=== PATIENT | male | born 1955 | race Asian ===

== ENCOUNTER 2024-07-02 05:14 | Day surgery (SDC) | payer SELFPAY ==
[~2024-07-02] VITALS: Ht 152.4 cm; Wt 89.0 kg
[~2024-07-02 05:14] MED LIST: SODIUM CHLORIDE 0.9% 1,000 ML ONE
[2024-07-02 05:49] LABS: BASOPHILS % (AUTO) 0.5 % (0.0-2.0); EOSINOPHILS % (AUTO) 1.5 % (1.0-6.0); HEMATOCRIT 46.7 % (41-53); HEMOGLOBIN 15.7 g/dL (13.5-17.5); LYMPHOCYTES # (AUTO) 2.8 K/uL (1.0-4.8); LYMPHOCYTES % (AUTO) 35.6 % (22.0-44.0); MEAN CORPUSCULAR HEMOGLOBIN 33.7 pg (26.0-34.0); MEAN CORPUSCULAR HGB CONC 33.7 G/dL (31.0-37.0); MEAN CORPUSCULAR VOLUME 100 fL (80-100); MONOCYTES # (AUTO) 0.7 K/uL (0.1-1.0); MONOCYTES % (AUTO) 8.7 % (2.0-9.0); NEUTROPHILS # (AUTO) 4.2 K/uL (1.8-7.7); NEUTROPHILS % (AUTO) 53.7 % (40.0-70.0); PLATELET COUNT (AUTO) 210 K/uL (150-450); RED BLOOD CELL COUNT(AUTO) 4.66 MIL/uL (4.50-5.90); RED CELL DISTRIBUTION WIDTH 13.5 % (11.5-14.5); WHITE BLOOD COUNT (AUTO) 7.8 K/uL (4.5-11.0)
[2024-07-02 06:00] LABS: PROTHROMBIN TIME 10.9 SEC (9.4-11.6)
[2024-07-02 06:04] LABS: ANION GAP 8 mmol/L (8-16); CALCIUM, TOTAL 9.2 mg/dL (8.8-10.5); CARBON DIOXIDE 29 mmol/L (22-29); CHLORIDE 105 mmol/L (98-107); CREATININE 0.89 mg/dL (0.60-1.30); GLOMERULAR FILTR. RATE CALC > 60 mL/min (>60); POTASSIUM 4.4 mmol/L (3.5-5.1); SODIUM SERUM 142 mmol/L (136-145); UREA NITROGEN, BLOOD 15 mg/dL (7-18)
[2024-07-02] MEDS: SODIUM CHLORIDE 0.9% 1,000 ML IV ONE (06:06)
[2024-07-02] MEDS ORDERED: IOHEXOL 300 MG/ML 50 ML VIAL ONE (06:17)
[2024-07-02] MEDS ORDERED: CeFAZolin SODIUM 1 GM VIAL ONE (06:17)
[2024-07-02] MEDS ORDERED: SODIUM BICARBONATE 50 MEQ/50 ML VIAL ONE (06:18)
[2024-07-02] MEDS ORDERED: LIDOCAINE/PF 1% 30 ML VIAL ONE ×3 (06:18→08:28)
[2024-07-02 06:34] LABS: GLUCOSE,RANDOM 135 mg/dL (70-110)
[2024-07-02] MEDS ORDERED: EMPA10TA3 PO (06:53)
[2024-07-02] MEDS ORDERED: BISO5TAB33 PO (06:53)
[2024-07-02] MEDS ORDERED: [UNRECOGNIZED DRUG - OTHER] PO (06:53)
[2024-07-02] MEDS ORDERED: ATOR40TA28 PO (06:53)
[2024-07-02] MEDS ORDERED: POTASSIUM CHL PO (06:53)
[2024-07-02] MEDS ORDERED: FURO40TA6 PO (06:53)
[2024-07-02] MEDS ORDERED: AMIO200T68 PO (06:53)
[2024-07-02] MEDS ORDERED: SPIR-37 PO (06:53)
[2024-07-02] MEDS ORDERED: SACUBITRIL PO (06:53)
[2024-07-02] MEDS ORDERED: VALSARTAN PO (06:53)
[2024-07-02 07:28] VITALS: BP 122/69; PULSE 59
[2024-07-02] MEDS ORDERED: FentaNYL CITRATE PF 100 MCG/2 ML VIAL ONE (07:36)
[2024-07-02] MEDS ORDERED: MIDAZOLAM HCL 2 MG/2 ML VIAL ONE ×2 (07:37→08:29)
[2024-07-02] MEDS ORDERED: DiphenhydrAMINE HCL 50 MG/ML VIAL ONE (07:39)
[2024-07-02] MEDS ORDERED: CYAN500T77 PO (08:48)
[2024-07-02] MEDS ORDERED: FINA-27 PO (08:48)
[2024-07-02] MEDS: MIDAZOLAM HCL 2 MG/2 ML VIAL IVP ONE ×4 (10:12→10:19)
[2024-07-02] MEDS: CeFAZolin SODIUM 1 GM VIAL IRRIG ONE (10:13)
[2024-07-02] MEDS: IOHEXOL 300 MG/ML 50 ML VIAL IVP ONE (10:13)
[2024-07-02] MEDS: FentaNYL CITRATE PF 100 MCG/2 ML VIAL IVP ONE ×4 (10:13→10:20)
[2024-07-02] MEDS: LIDOCAINE 1% 30 ML/SOD BICARB 8.4% 4 ML SQ ONE ×2 (10:14→10:17)
[2024-07-02] MEDS: DiphenhydrAMINE HCL 50 MG/ML VIAL IVP ONE (10:15)
[2024-07-02] MEDS: CeFAZolin SODIUM 1 GM VIAL IVP ONE (10:15)
[2024-07-02 10:22] VITALS: BP 107/61; PULSE 75
== END 2024-07-02 13:10 | disposition home or self-care (01) ==
LOC: SDS 05:14
PROVIDERS: ATTEND Internal Medicine Clinical Cardiac Electrophysiology
DX: Z45.02 Encounter for adjustment and management of automatic implantable cardiac defibrillator (principal); I42.0 Dilated cardiomyopathy; I25.5 Ischemic cardiomyopathy; I10 Essential (primary) hypertension; I47.20 Ventricular tachycardia, unspecified; I44.2 Atrioventricular block, complete; Z79.01 Long term (current) use of anticoagulants; Z79.899 Other long term (current) drug therapy; Z98.890 Other specified postprocedural states
CPT/HCPCS: 33264; 93005; 80048; 85025; 85610; 85730; 36415; 88300; 33225; 71045; C1882; J0690; J1200; J3010; J3490 ×2; J2250; J7030; Q9967; C1900; 33216; 33240; 36005; 76000